=== PATIENT | female | born 1995 | race Caucasian/White ===

== ENCOUNTER 2017-08-11 13:08 | Emergency (ER) | payer BC ==
[2017-08-11 13:36] VITALS: BP 124/84
--- NOTE | 2017-08-11 14:51 | UC ---
Abdominal Pain Female HPI - HPI Summary HPI Summary: 21 year old female with non-significant pmhx here with abdominal pain and lower back pain for 4 days. Reports symptoms started 4 days ago with one episode of NBNB vomiting. At night , she developed lower abdominal pain and back pain. Pain described as throbbing, worsened with movement and eating. She denies fever, chills, diarrhea, dysuria, hematuria or any other complaints. - History of Current Complaint Chief Complaint: UCAbdominalPain Stated Complaint: BACK PAIN, AND ABDOMINAL PAIN Time Seen by Provider: 08/11/17 14:28 Hx Obtained From: Patient Hx Last Menstrual Period: 07/28/17 Onset/Duration: Sudden Onset Timing: Intermittent Episodes Lasting: - minutes to hours. Severity Initially: Moderate Severity Currently: Mild Pain Intensity: 4 Pain Scale Used: 0-10 Numeric Location: Suprapubic Radiates to: Back Character: Sharp, Other - throbbing Aggravating Factor(s): Movement Alleviating Factor(s): Nothing Associated Signs and Symptoms: Positive: Decreased Appetite Allergies/Adverse Reactions: Allergies Allergy/AdvReac Type Severity Reaction Status Date / Time strawberry Allergy Swelling Verified 08/11/17 13:28 Of Face,Lips,& Throat PMH/Surg Hx/FS Hx/Imm Hx - Additional Past Medical History Additional PMH: Anemia, thrombocytopenia, Endometriosis - Surgical History Surgical History: None - Family History Known Family History: Positive: None - Social History Alcohol Use: Weekly Alcohol Amount: Weekends Substance Use Type: Marijuana Substance Use Comment - Amount & Last Used: 1-2 weekly Smoking Status (MU): Light Every Day Tobacco Smoker Amount Used/How Often: 1 pack q 1.5 weeks Household Exposure Type: Cigarettes Review of Systems Gastrointestinal: Abdominal Pain Genitourinary: Negative Motor: Negative All Other Systems Reviewed And Are Negative: Yes Physical Exam Triage Information Reviewed: Yes Appearance: Well-Appearing Vital Signs: Initial Vital Signs Temp 36.7 C 08/11/17 13:29 Pulse 84 08/11/17 13:29 Resp 16 08/11/17 13:29 BP 124/84 08/11/17 13:29 Pulse Ox 100 08/11/17 13:29 ENT: Positive: Normal ENT inspection Neck: Positive: Supple Respiratory: Positive: Chest non-tender, Lungs clear, Normal breath sounds, No respiratory distress, No accessory muscle use Cardiovascular: Positive: RRR, No Murmur, Pulses Normal Abdomen Description: Positive: Other: - suprapubic tenderness with no guarding Musculoskeletal Exam: Normal Neurological: Positive: Alert Abd Pain Female Course/Dx - Differential Dx/Diagnosis Differential Diagnosis: Constipation, Ectopic , Pelvic Inflammatory Disease, Urinary Tract Infection Provider Diagnoses: Urinary tract infection. Patient's UA is positive. Will treat for UTI Discharge - Discharge Plan Condition: Good Disposition: HOME Patient Education Materials: Urinary Tract Infection in Women (ED) Forms: *Work Release Referrals: No Primary Care Phys,NOPCP [Primary Care Provider] -
== END 2017-08-11 15:02 | disposition home or self-care (01) ==
LOC: UCEAST 13:08
DX: N39.0 Urinary tract infection, site not specified (principal); M54.5 Low back pain; R10.30 Lower abdominal pain, unspecified; Z32.02 Encounter for pregnancy test, result negative; F17.210 Nicotine dependence, cigarettes, uncomplicated
CPT/HCPCS: 81003; 84702; 87077; 87086; 87186; 99202; G0463